=== PATIENT | male | born 1975 | race Caucasian/White ===

== ENCOUNTER 2017-06-01 10:42 | Emergency (ER) | payer OTHER | END 2017-06-01 11:43 | disposition home or self-care (01) | LOC: M ED 10:42 | DX: S51.801A Unspecified open wound of right forearm, initial encounter (principal); X58.XXXA Exposure to other specified factors, initial encounter; Y92.89 Other specified places as the place of occurrence of the external cause; B19.20 Unspecified viral hepatitis C without hepatic coma; Z79.891 Long term (current) use of opiate analgesic; Z88.0 Allergy status to penicillin; F17.210 Nicotine dependence, cigarettes, uncomplicated | CPT/HCPCS: 99282 ==